=== PATIENT | female | born 1960 | race American Indian/Alaskan Native ===

== ENCOUNTER 2017-06-06 08:56 | Emergency (ER) | payer OTHER ==
[2017-06-06 09:31] VITALS: BP 140/79
--- NOTE | 2017-06-06 11:49 | Emergency Department Report ---
ED General Adult HPI - General Chief complaint: Medical Clearance Stated complaint: CLOGGED PIC LINE Time Seen by Provider: 06/06/17 11:37 Source: patient Mode of arrival: Ambulatory Limitations: No Limitations - History of Present Illness -: Sudden (to er when her picc would not flush this am. ) - Related Data Home Medications Medication Instructions Recorded Confirmed Last Taken Aspirin [Aspirin TAB] 81 mg PO QDAY 08/01/13 05/24/17 Unknown Multivitamin [Multi-Vitamin Daily] 1 each PO DAILY 08/01/13 05/24/17 Unknown Letrozole 2.5 mg PO DAILY 05/24/17 05/24/17 Unknown Previous Rx's Medication Instructions Recorded Last Taken Type Bhjumrhsxabh-Gkgc-Iiigaszj,Iso 4.5 gm IV Q8H 17 Days froz.piggy 05/28/17 Unknown Rx [Zosyn 4.5 gm/100 ml Galaxy Bag] Anastrozole [Anastrozole] 1 tab PO DAILY 05/29/17 Unknown Rx Oxycodone HCl/Acetaminophen 1 each PO Q6HR PRN #30 tablet 05/29/17 Unknown Rx [Percocet 10/325 mg] Allergies Allergy/AdvReac Type Severity Reaction Status Date / Time vancomycin Allergy Itching Verified 05/24/17 21:39 ED Review of Systems ROS: Stated complaint: CLOGGED PIC LINE Other details as noted in HPI Comment: unable to flush picc this am ED Past Medical Hx - Past Medical History Previous Medical History?: Yes Hx Hypertension: No Hx Congestive Heart Failure: No Hx Diabetes: No Hx Deep Vein Thrombosis: No Hx Sickle Cell Disease: No Hx Asthma: No Hx COPD: No Additional medical history: abd infection w iv anbx and picc line. forrest is a rn. son was giving meds this am and picc would not flush - Surgical History Past Surgical History?: Yes Hx Pacemaker: No Hx Internal Defibrillator: No Hx Breast Surgery: Yes Additional Surgical History: Hernia sx - Social History Smoking Status: Never Smoker Substance Use Type: None - Medications Home Medications: Home Medications Medication Instructions Recorded Confirmed Last Taken Type Aspirin [Aspirin TAB] 81 mg PO QDAY 08/01/13 05/24/17 Unknown History Multivitamin [Multi-Vitamin Daily] 1 each PO DAILY 08/01/13 05/24/17 Unknown History Letrozole 2.5 mg PO DAILY 05/24/17 05/24/17 Unknown History Xdndfsoksyef-Ievh-Biggeqki,Iso 4.5 gm IV Q8H 17 Days frozgabinogy 05/28/17 Unknown Rx [Zosyn 4.5 gm/100 ml Galaxy Bag] Anastrozole [Anastrozole] 1 tab PO DAILY 05/29/17 Unknown Rx Oxycodone HCl/Acetaminophen 1 each PO Q6HR PRN #30 tablet 05/29/17 Unknown Rx [Percocet 10/325 mg] ED Physical Exam - General Limitations: No Limitations General appearance: alert - Head Head exam: Present: atraumatic - Eye Eye exam: Present: normal appearance - ENT ENT exam: Present: mucous membranes moist - Neck Neck exam: Present: normal inspection - Respiratory Respiratory exam: Present: normal lung sounds bilaterally - Cardiovascular Cardiovascular Exam: Present: regular rate - GI/Abdominal GI/Abdominal exam: Present: soft - Rectal Rectal exam: Present: deferred - Extremities Exam Extremities exam: Present: normal inspection - Back Exam Back exam: Present: normal inspection - Neurological Exam Neurological exam: Present: alert, oriented X3 - Psychiatric Psychiatric exam: Present: normal affect, normal mood ED Course Vital Signs 06/06/17 09:26 Temperature 97.7 F Pulse Rate 66 Respiratory 16 Rate Blood Pressure 140/79 O2 Sat by Pulse 100 Oximetry - Reevaluation(s) Reevaluation #1: 06/06/17 12:10 picc flushed wo diff it is slightly positional family educated labs drawn per dc note line accessed and cleaned per protocol vss nad no fever no complaints - Phlebotomy Reason for Blood Draw by MD: RN/lab unable Obtained Bloods via: other (picc line) Additional Comments: flushed and labs drawn ED Medical Decision Making - Medical Decision Making see note - Differential Diagnosis picc line Critical care attestation.: If time is entered above; I have spent that time in minutes in the direct care of this critically ill patient, excluding procedure time. ED Disposition Clinical Impression: PICC (peripherally inserted central catheter) in place Disposition: DC- TO HOME OR SELFCARE Is pt being admited?: No Does the pt Need Aspirin: No Condition: Stable Instructions: Peripherally Inserted Central Catheters and Midline Catheters (ED ) Additional Instructions: continue plan of care per MD [email or web address] as instructed Referrals: PRIMARY CARE, [Primary Care Provider] - 3-5 Days Time of Disposition: 11:47
[2017-06-06 12:17] LABS: Basophils % (Auto) 0.8 % (0.0-1.8); Eosinophils % (Auto) 1.8 % (0.0-4.3); Hematocrit 35.1 % (30.3-42.9); Hemoglobin 11.2 gm/dl (10.1-14.3); Mean Corpuscular HGB Conc 32 % (30-34); Mean Corpuscular Volume 78 fl (79-97); Platelet Count 311 K/mm3 (140-440); Red Cell Distribution Width 16.1 % (13.2-15.2); White Blood Count 7.2 K/mm3 (4.5-11.0)
[2017-06-06 12:25] LABS: Mean Corpuscular Hemoglobin 25 pg (28-32)
[2017-06-06 12:36] LABS: Alanine Aminotransferase 42 units/L (7-56); Albumin/Globulin Ratio 1.3 %; Alkaline Phosphatase 78 units/L (35-129); Anion Gap 19 mmol/L; BUN/Creatinine Ratio 10; Blood Urea Nitrogen 7 mg/dL (7-17); Calcium 9.1 mg/dL (8.4-10.2); Carbon Dioxide 26 mmol/L (22-30); Chloride 99.7 mmol/L (98-107); Glucose 91 mg/dL (65-100); Potassium 3.4 mmol/L (3.6-5.0); Sodium 141 mmol/L (137-145); Total Protein 7.2 g/dL (6.3-8.2)
== END 2017-06-06 12:08 | disposition home or self-care (01) ==
LOC: ED 08:56
DX: Z95.9 Presence of cardiac and vascular implant and graft, unspecified (principal); Z88.1 Allergy status to other antibiotic agents; Z79.82 Long term (current) use of aspirin
CPT/HCPCS: 99283

== ENCOUNTER 2017-06-22 12:07 | Emergency (ER) | payer OTHER ==
[2017-06-22 12:30] VITALS: BP 165/88
--- NOTE | 2017-06-22 13:30 | Emergency Department Report ---
ED Medical Clearance HPI - General Chief complaint: Medical Clearance Stated complaint: PICC LINE REMOVAL Time Seen by Provider: 06/22/17 13:06 Source: patient Mode of arrival: Ambulatory - History of Present Illness Initial comments: 56-year-old female presents to the ED for PICC line removal. Sent by her infectious disease specialist Dr. Gallegos patient has just completed course of 17 days of IV antibiotics for intra-abdominal postsurgical infection. Patient is awake alert and oriented 3 not in acute distress denies fevers or chills. Denies any abdominal pain. States that she was instructed by Dr. Gallegos to report to the ED for PICC line removal. Does not currently have primary care provider. Nurse district wildlife manager Barry Morse aware that the patient has been sent by Dr. Gallegos for PICC line removal. Complaint: other (PICC line removal) Compliant with Home Medications: Yes Home medications: Home Medications Medication Instructions Recorded Confirmed Last Taken Aspirin [Aspirin TAB] 81 mg PO QDAY 08/01/13 05/24/17 Unknown Multivitamin [Multi-Vitamin Daily] 1 each PO DAILY 08/01/13 05/24/17 Unknown Letrozole 2.5 mg PO DAILY 05/24/17 05/24/17 Unknown Previous Rx's Medication Instructions Recorded Last Taken Type Cplhhchtfblg-Ronr-Etqpnsyf,Iso 4.5 gm IV Q8H 17 Days froz.piggy 05/28/17 Unknown Rx [Zosyn 4.5 gm/100 ml Galaxy Bag] Anastrozole [Anastrozole] 1 tab PO DAILY 05/29/17 Unknown Rx Oxycodone HCl/Acetaminophen 1 each PO Q6HR PRN #30 tablet 05/29/17 Unknown Rx [Percocet 10/325 mg] Allergies/Adverse reactions: Allergies Allergy/AdvReac Type Severity Reaction Status Date / Time vancomycin Allergy Itching Verified 05/24/17 21:39 ED Review of Systems ROS: Stated complaint: PICC LINE REMOVAL Other details as noted in HPI Comment: patient just completed a course of 17 days of IV antibiotics for intra- abdominal infection Constitutional: denies: chills, fever Eyes: denies: eye pain, eye discharge, vision change ENT: denies: ear pain, throat pain Respiratory: denies: cough, shortness of breath, wheezing Cardiovascular: denies: chest pain, palpitations Endocrine: no symptoms reported Gastrointestinal: denies: abdominal pain, nausea, diarrhea Genitourinary: denies: urgency, dysuria, discharge Musculoskeletal: denies: back pain, joint swelling, arthralgia Skin: denies: rash, lesions Neurological: denies: headache, weakness, paresthesias Psychiatric: denies: anxiety, depression Hematological/Lymphatic: denies: easy bleeding, easy bruising ED Past Medical Hx - Past Medical History Previous Medical History?: Yes Hx Hypertension: No Hx Congestive Heart Failure: No Hx Diabetes: No Hx Deep Vein Thrombosis: No Hx Sickle Cell Disease: No Hx Asthma: No Hx COPD: No Additional medical history: abd infection w iv anbx and picc line. forrest is a rn. son was giving meds this am and picc would not flush - Surgical History Past Surgical History?: Yes Hx Pacemaker: No Hx Internal Defibrillator: No Hx Breast Surgery: Yes Additional Surgical History: Hernia sx - Social History Smoking Status: Never Smoker Substance Use Type: Prescribed - Medications Home Medications: Home Medications Medication Instructions Recorded Confirmed Last Taken Type Aspirin [Aspirin TAB] 81 mg PO QDAY 08/01/13 05/24/17 Unknown History Multivitamin [Multi-Vitamin Daily] 1 each PO DAILY 08/01/13 05/24/17 Unknown History Letrozole 2.5 mg PO DAILY 05/24/17 05/24/17 Unknown History Lwoyoiyeppqk-Eayb-Vmrbmhry,Iso 4.5 gm IV Q8H 17 Days froz.piggy 05/28/17 Unknown Rx [Zosyn 4.5 gm/100 ml Galaxy Bag] Anastrozole [Anastrozole] 1 tab PO DAILY 05/29/17 Unknown Rx Oxycodone HCl/Acetaminophen 1 each PO Q6HR PRN #30 tablet 05/29/17 Unknown Rx [Percocet 10/325 mg] ED Physical Exam - General Limitations: No Limitations General appearance: alert, in no apparent distress - Head Head exam: Present: atraumatic, normocephalic - Eye Eye exam: Present: normal appearance, PERRL, EOMI - ENT ENT exam: Present: mucous membranes moist - Neck Neck exam: Present: normal inspection - Respiratory Respiratory exam: Present: normal lung sounds bilaterally. Absent: respiratory distress - Cardiovascular Cardiovascular Exam: Present: regular rate, normal rhythm. Absent: systolic murmur, diastolic murmur, rubs, gallop - GI/Abdominal GI/Abdominal exam: Present: soft, normal bowel sounds - Extremities Exam Extremities exam: Present: normal inspection - Expanded Upper Extremity Exam Right Upper Arm exam: Present: other (PICC line insertion site right upper bicep region with tegaderm and biofilm intact) - Back Exam Back exam: Present: normal inspection - Neurological Exam Neurological exam: Present: alert, oriented X3 - Psychiatric Psychiatric exam: Present: normal affect, normal mood - Skin Skin exam: Present: warm, dry, intact, normal color. Absent: rash ED Course Vital Signs 06/22/17 12:26 Temperature 98.6 F Pulse Rate 68 Respiratory 18 Rate Blood Pressure 165/88 O2 Sat by Pulse 97 Oximetry ED Medical Decision Making - Medical Decision Making A/P: PICC line removal right arm 1-PICC Line removed by RN Director Barry Morse. successful removal of PICC line, PICC line intact at 42 cm at tip. No post removal bleeding from site. 2-chest x-ray unremarkable no visible radiopaque line or catheter tip 3-patient to follow up with primary care and her infectious disease specialist Dr. Gallegos 4- case d/w Dr. Mathias before discharge ED Disposition Clinical Impression: PIC line (peripherally inserted central catheter) removal Disposition: DC- TO HOME OR SELFCARE Is pt being admited?: No Does the pt Need Aspirin: No Condition: Stable Instructions: Peripherally Inserted Central Catheters and Midline Catheters (ED ) Referrals: [facility] [Outside] - 3-5 Days Forms: Accompanied Note, Work/School Release Form(ED) Time of Disposition: 13:30
--- NOTE | 2017-06-22 13:41 | XRay Report ---
ROUTINE CHEST, TWO VIEWS: HISTORY: PICC line removal. The right arm PICC and nasogastric tube have been removed since 05/27/17. The trachea, heart, mediastinal contour, lung tobar and bony thorax are unremarkable. IMPRESSION: Unremarkable chest x-ray.
== END 2017-06-22 13:57 | disposition home or self-care (01) ==
LOC: ED 12:07
DX: Z45.2 Encounter for adjustment and management of vascular access device (principal); Z79.82 Long term (current) use of aspirin; Z88.1 Allergy status to other antibiotic agents
CPT/HCPCS: 71020; 99283